=== PATIENT | female | born 1940 | race Caucasian/White ===

== ENCOUNTER → 2016-10-27 | Outpatient (CLI) | payer MEDICARE, OTHER ==
[~2016-10-27] MED LIST: ACET-2890 PO; AMLO10TA2 PO; ASCO500C15 PO; ASPI-611 PO; ATEN-36 PO; CALC600T12 PO; DOCU-168 PO; FISH1CAP29 PO; LEVO750T20 PO; LOSA100T44 PO; METR500T PO; MULT1CAP47 PO; NIAC500T74 PO; OMEP20CA81 PO; ONDA4TAB7 PO; SIMV20TA89 PO; [UNRECOGNIZED DRUG - CODE] PO
--- NOTE | 2016-10-27 16:55 | DI ---
Indication: ITS.REASON: M25.551 PAIN IN RT HIP PROCEDURE: HIP RIGHT 2 VIEW: Encounter: Initial Comparison: None Findings: There is no acute fracture, dislocation or malalignment identified. Moderate to severe axial joint space narrowing with small osteophytes on the femoral head. Impression: No acute osseous abnormality. Moderate osteoarthritis. .
== END ==
LOC: IMA 16:10
PROVIDERS: ATTEND Internal Medicine
DX: M16.11 Unilateral primary osteoarthritis, right hip (principal); M25.551 Pain in right hip

== ENCOUNTER → 2016-11-26 | Outpatient (CLI) | payer MEDICARE, OTHER ==
[~2016-11-26] MED LIST changes: +ATOR80TA76 PO; +CLOP75TA PO; +FENT1PAT65 TOP; +HYDR-4246 PO; +PANT40TA27 PO
[2016-11-26 18:38] LABS: ALBUMIN 4.3 G/DL (3.5-5.0); ALBUMIN/GLOBULIN RATIO 1.9 RATIO (1.1-2.2); ALKALINE PHOSPHATASE 71 U/L (38-126); ALT (SGPT) 35 U/L (9-52); ANION GAP 13 MEQ/L (5-15); AST (SGOT) 22 U/L (14-36); BUN/CREATININE RATIO 21 RATIO (6-26); CALCIUM 10.2 MG/DL (8.4-10.2); CHLORIDE 104 MEQ/L (98-107); CO2 - CARBON DIOXIDE 26 MEQ/L (22-30); CREATININE 1.3 MG/DL (0.7-1.2); GLOMERULAR FILTRATION RATE 40; GLUCOSE 106 MG/DL (65-110); POTASSIUM 4.6 MEQ/L (3.6-5); SODIUM 143 MEQ/L (134-144); TOTAL PROTEIN 6.6 G/DL (6.3-8.2)
== END ==
LOC: LAB 16:50
PROVIDERS: ATTEND Nurse Practitioner
DX: R19.7 Diarrhea, unspecified (principal); R10.9 Unspecified abdominal pain
CPT/HCPCS: 36415; 80053

== ENCOUNTER → 2016-11-27 | Outpatient (CLI) | payer MEDICARE, OTHER ==
[~2016-11-27] MED LIST changes: -ACET-2890 PO; -DOCU-168 PO; -LEVO750T20 PO; -LOSA100T44 PO; -METR500T PO; -OMEP20CA81 PO; -ONDA4TAB7 PO; -SIMV20TA89 PO
== END ==
LOC: LABN 09:19 → CCC.NEW 09:19
PROVIDERS: ATTEND Nurse Practitioner
DX: R19.7 Diarrhea, unspecified (principal)
CPT/HCPCS: 87507

== ENCOUNTER 2017-04-01 05:42 | Inpatient (IN) ==
[2017-04-01] MEDS ORDERED: LIDOCAINE 1% (10mg/ml) 2mL INJ PF SDV ID ONE (06:00)
[2017-04-01] MEDS ORDERED: DEXAMETHASONE 4 MG/ML INJECTION IVP ONE (06:00)
[2017-04-01] MEDS ORDERED: ONDANSETRON 4 MG/2 ML INJECTION IVP ONE (06:00)
[2017-04-01] MEDS ORDERED: ACETAMINOPHEN 500 MG TABLET PO ONE (06:00)
[2017-04-01] MEDS ORDERED: METOCLOPRAMIDE 10mg/2ml INJECTION IVP ONE (06:00)
[2017-04-01] MEDS ORDERED: NOZIN NASAL SWAB NAS ONE ×2 (06:00→10:29)
[2017-04-01] MEDS ORDERED: FAMOTIDINE PB 20 MG/50 ML BAG IV ONE (06:00)
[2017-04-01 06:04] VITALS: BMI 33.7
--- NOTE | 2017-04-01 06:11 | History & Physical Update ---
- History and Physical Update Date: 04/01/17 Update: I evaluated this patient and found no changes in the history and clinical exam findings. The treatment plan and recommendations are also unchanged from the previous documentation.
[2017-04-01] MEDS: LR 1,000 ML IV SCH ×2 (06:20→07:40)
[2017-04-01] MEDS ORDERED: VANCOMYCIN 1,000 MG INJECTION ONE (06:26)
[2017-04-01] MEDS ORDERED: MIDAZOLAM 2mg/2ml INJECTION ONE (06:52)
[2017-04-01] MEDS ORDERED: PROPOFOL 500 MG/50 ML VIAL IV ONE ×2 (06:52→08:42)
--- NOTE | 2017-04-01 07:03 | Anesthesia Preoperative Report ---
Anesthesia Preoperative Record - Date and Time Date: 04/01/17 Preoperative Diagnosis: Rt STEPH M16.11 Proposed Procedure: right total hip arthroplasty NPO Since Date: 03/31/17 NPO Since Time: 23:00 Allergies/Adverse Reactions: Allergies Allergy/AdvReac Type Severity Reaction Status Date / Time loracarbef [From Lorabid] Allergy Intermediate Rash Verified 04/01/17 06:13 hydrochlorothiazide Allergy Unknown jittery Verified 04/01/17 06:09 triamterene AdvReac Unknown jittery Verified 04/01/17 06:09 - Vital Signs Vital Signs: Temperature 97.9 F 04/01/17 06:03 Pulse Rate 72 04/01/17 06:03 Respiratory Rate 17 04/01/17 06:03 Blood Pressure 188/81 H 04/01/17 06:03 Pulse Oximetry 96 04/01/17 06:03 Height and Weight: Height 5 ft 6 in Weight 94.8 kg Body Mass Index 33.7 - Medications Inpatient Medications: Current Medications Cefazolin Sodium (Kefzol) 2 g IVP PREOP ONE Stop: 04/02/17 07:16 Epinephrine HCl 0.25 mg/Bupivacaine HCl 30 ml/Morphine Sulfate 15 mg/Ketorolac Tromethamine 60 mg/Sodium Chloride 65.25 mls @ 0 mls/hr OPSITE INTRAOP ONE; Per Protocol PRN Reason: Protocol Stop: 04/01/17 08:01 Lactated Ringer's (Lactated Ringers) 1,000 mls @ 50 mls/hr IV .Q20H IMER Last Admin: 04/01/17 06:20 Dose: 50 mls/hr Miscellaneous Medication (Tranexamic 1gm/Ns 100 Irr Mix) 100 ml IR O ONE Stop: 04/01/17 16:51 Sodium Chloride (Iv Flush) 10 - 80 ml IV PRN PRN PRN Reason: [place] Home Medications: Home Medications Medication Instructions Recorded Confirmed Type Atenolol 25 mg PO DAILY #0 03/04/10 04/01/17 History Niacin 500 mg PO DAILY #0 03/04/10 04/01/17 History Atorvastatin Calcium 80 mg PO HS #0 tab 11/26/16 04/01/17 History Clopidogrel Bisulfate [Plavix] 1 tab PO DAILY #0 tab 11/26/16 04/01/17 History Pantoprazole Sodium 40 mg PO ACB #0 tab 11/26/16 04/01/17 History Aleve (Naproxen) 220 mg capsule 220 mg PO DAILY PRN 03/24/17 04/01/17 History Colchicine [Colcrys] 0.6 mg PO DAILY PRN 03/24/17 04/01/17 History Fexofenadine [Suzan] 60 mg PO DAILY 03/24/17 04/01/17 History Hydrocodone/APAP 5/325 [[place] 1 tab PO Q6HPRN PRN 03/24/17 04/01/17 History 5/325] Multivitamin [Multivitamins] 1 each PO DAILY 03/24/17 04/01/17 History Norvasc (amlodipine) 5 mg tablet 5 mg PO DAILY tab 03/24/17 04/01/17 History [place]-3/Dha/Epa/Fish Oil [Fish Oil 2 each PO BID 03/24/17 04/01/17 History 1,000 mg Softgel] Tylenol Arthritis 650 mg 650 mg PO BID tab 03/24/17 04/01/17 History tablet,extended release Ubidecarenone/Vit E Acet [Co Q-10 1 each PO DAILY 03/24/17 04/01/17 History 100 mg Softgel] aspirin 500 mg tablet 500 mg PO DAILY tab 03/24/17 04/01/17 History Is Patient on Beta Chan?: Yes - Medical History Respiratory: DENIES: Asthma, Sleep Apnea Cardiovascular: Reports: Hypertension, High Cholesterol Gastrointestional: Reports: Gastroesophageal Reflux Disease Neuro/Musculoskeletal: Reports: Cerebrovascular Accident (possible CVA/TIA in past- plavix stopped 10 days ago) Renal/Endocrine: DENIES: Diabetes Mellitus Type 2 Other History: DENIES: Anesthesia Reactions - Surgical History GI Surgery/Treatments: Reports: Colonoscopy (polyps) Musculoskeletal Surgery/Tx: Reports: Total Knee Replacement (left and right), Other (lumbar back fusion) Reproductive Surgery/Treatment: Reports: Hysterectomy ([facility]/BSO, APPY 1990) Anesthesia Reactions: None Hx Family Anesthesia Reaction: No History of Motion Sickness: No - Social History Smoking Status: Never smoker Hx Chewing Tobacco Use: No Second Hand Exposure: No Substance Use Type: does not use Alcohol Intake Frequency: does not drink - Pertinent Findings Laboratory: CBC and BMP 04/01/17 06:24 EKG: Sinus Rhythm - Physical Exam Respiratory Exam: Present: lungs clear, bilateral breath sounds equal Cardiovascular Exam: Present: regular rate and rhythm - Airway Assessment Mallampati Score: I TMD: 3 Fingerbreadths Neck Extension: good - ASA ASA Score: 2 - Plan Anesthesia: General TIVA, Neuroaxial Regional/Trunk Block: Spinal - Discussion Discussion: Discussed risks/options/alternatives of anesthesia and questions answered. Patient consents. Nursing pain assessment noted. Attestation Statement: Prior to the delivery of any anesthetic medication, I examined the patient, developed the plan, obtained the patient's consent and discussed the risk and benefits of the procedure with the patient/guardian. - Additional Information Seen by Anesthesia: Yes
[2017-04-01] MEDS: CEFAZOLIN 1 G INJECTION IVP ONE ×2 (07:13→07:14)
[2017-04-01] MEDS ORDERED: EPINEPHrine 0.25 MG, BUPIVACAINE 0.25% PF 30 ML, MORPHINE SULFATE 15 MG, KETOROLAC INJ ... OPSITE ONE (08:00)
[2017-04-01] MEDS ORDERED: VANCOMYCIN 1,000 MG INJECTION IAR ONE (08:03)
[2017-04-01] MEDS ORDERED: ONDANSETRON 4 MG/2 ML INJECTION IVP PRN ×2 (08:35→10:29)
[2017-04-01] MEDS ORDERED: HYDROMORPHONE 2 MG/ML INJECTION IVP PRN (08:35)
[2017-04-01] MEDS ORDERED: DEXAMETHASONE 4 MG/ML INJECTION ONE (09:00)
[2017-04-01] MEDS ORDERED: SALINE FLUSH 10ml SYRINGE ONE (09:00)
[2017-04-01] MEDS ORDERED: EPHEDRINE 50mg/ml INJECTION ONE (09:00)
[2017-04-01] MEDS ORDERED: ONDANSETRON 4 MG/2 ML INJECTION ONE (09:00)
--- NOTE | 2017-04-01 09:45 | Operative Note ---
- Procedure Preoperative Diagnosis: Right hip primary degenerative joint disease Postoperative Diagnosis: Same as preoperative diagnosis. Surgeon: Wong Ashford MD Manager Generation: Tacho Villegas Complications: None. Anesthesia: General with gas Estimated Blood Loss: See Anesthesia Record. Fluids: Please see Anesthesia Record. Description of Procedure: Mrs. Coe and her right hip were identified and marked in the preoperative holding area. She was brought back to the operating suite and spinal anesthetic was administered. She was then placed in a lateral decubitus position with her right hip up. The right lower extremity was prepped and draped in my normal sterile fashion. Timeout was performed. The Droid[employer] robotic arm was used to assist with the surgery. A pelvic array was placed into the iliac crest through three 1 cm incisions. A direct superior approach was utilized. An approximately 15 cm incision was made in the skin and dissection carried down to the muscle fascia which was then split in line with skin incision. A checkpoint was placed in the greater trochanter. The short external rotators were identified and tagged and detached. A capsulotomy was performed and the hip dislocated. A femoral neck osteotomy was performed at the pre-templated level measuring down from the femoral head. The head was removed and acetabulum exposed. Labrum was removed. A checkpoint was placed superior to the acetabulum. The acetabulum was then registered with the robot. The robotic arm was then used to ream with a 49 reamer. She has sclerotic rim and the 50 mm implant did not seat fully the first time so it was removed and we reamed the rim with a 50 mm reamer. The robot then was again used to place a 50 Trident cup in 40 of tilt and 25 of anteversion. A liner was then placed. The proximal femur was exposed and prepared with a cookie cutter followed by reaming and broaching to a size 4. We trialed with a -5 head. After thorough irrigation a final Accolade 2 size 4 stem with 127 neck was placed. Leg length and offset were checked with the robot and were good. A final -5 metal head was placed and the hip reduced. Betadine solution was used to irrigate throughout the case. It was followed by normal saline irrigation. Joint cocktail was injected throughout soft tissue. 1 g of TXA was allowed to sit in the wound for 5 minutes and then suctioned out. The capsulotomy was repaired with Ethibond. Short external rotators were also repaired with Ethibond. 1 g of vancomycin powder was placed into the wound. The muscle fascia was then repaired with #1 Vicryl. I then left my junior administrative assistant to close the subcutaneous tissue with 2-0 Vicryl followed by running 4-0 Monocryl skin followed by Dermabond and a sterile dressing. The patient with any placed back into supine position and taken to recovery room in the care of anesthesia.
[2017-04-01] MEDS ORDERED: DiphenhydrAMINE 25 MG CAPSULE PO PRN (10:29)
[2017-04-01] MEDS ORDERED: LORazepam 1 MG TABLET PO PRN (10:29)
[2017-04-01] MEDS ORDERED: DiphenhydrAMINE 50 MG/ML INJECTION IVP PRN (10:29)
[2017-04-01] MEDS ORDERED: NAPROXEN 220 MG TABLET PO PRN (10:29)
[2017-04-01] MEDS ORDERED: COLCHICINE 0.6 MG TABLET PO PRN (10:29)
--- NOTE | 2017-04-01 10:29 | Anesthesia Postoperative Note ---
- Date and Time Date: 04/01/17 Time: 10:09 - Status Patient Participated in Evaluation: Patient Participated in Person Vital Signs: Temperature 97.9 F 04/01/17 06:03 Pulse Rate 72 04/01/17 06:03 Respiratory Rate 04/01/17 06:03 Blood Pressure 188/81 H 04/01/17 06:03 Pulse Oximetry 96 04/01/17 06:03 Respiratory Function: Airway Patent Cardiovascular Function: Regular Pulse EKG: Sinus Rhythm Mental Status: Alert and Oriented Pain Intensity: 0 (spinal still active) Hydration: IV Infusing Complications During Recover: None Apparent - Follow-Up Instructions Instructions: Per Surgeon
[2017-04-01] MEDS: AMLODIPINE 5 MG TABLET PO SCH (10:40)
[2017-04-01] MEDS: ATENOLOL 25 MG TABLET PO SCH (10:40)
[2017-04-01] MEDS: FEXOFENADINE 60 MG TABLET PO SCH (10:41)
[2017-04-01] MEDS: NS 1,000 ML IV SCH (10:42)
[2017-04-01] MEDS: POLYETHYL GLYCOL 3350 17gm PACKET PO SCH (10:42)
[2017-04-01] MEDS: DOCUSATE SODIUM 100 MG CAPSULE PO SCH ×2 (10:42→21:02)
[2017-04-01] MEDS: ACETAMINOPHEN 325 MG TABLET PO SCH ×4 (10:42→21:02)
[2017-04-01] MEDS ORDERED: FALL RISK - PHARMACY CONSULT XX ONE (10:55)
[2017-04-01] MEDS: CLOPIDOGREL 75 MG TABLET PO SCH (11:00)
[2017-04-01] MEDS: OMEGA-3 ACID ESTERS 1 GM CAPSULE PO SCH ×2 (12:24→21:01)
--- NOTE | 2017-04-01 12:50 | XRay Report ---
Indication: postoperative image PROCEDURE: XR pelvis w/ 1 view RT hip: Encounter: Initial Comparison: October 27, 2016 Findings: Postoperative changes of right total hip replacement are seen. There is expected postoperative subcutaneous gas. No evidence of hardware failure or acute fracture. No retained radiopaque surgical instruments or sponges seen. Impression: New right total hip prosthesis without evidence of immediate complication. .
[2017-04-01] MEDS: Oxycodone *IR* 5 MG TABLET PO PRN ×3 (13:36→21:03)
[2017-04-01] MEDS: NOZIN NASAL SWAB NAS SCH ×2 (13:36→21:02)
[2017-04-01] MEDS: CEFAZOLIN 2 G in NS 100 ML IV SCH ×2 (14:47→22:37)
[2017-04-01] MEDS ORDERED: SALINE FLUSH 10ml SYRINGE IV PRN (16:50)
[2017-04-01] MEDS ORDERED: TRANEXAMIC ACID 1gm/NS 100ml IRR MIX IR ONE (16:50)
[2017-04-01] MEDS ORDERED: NIACIN ER 500 MG TABLET PO SCH (21:00)
[2017-04-01] MEDS ORDERED: ATORVASTATIN 40 MG TABLET PO SCH (21:00)
[2017-04-01] MEDS ORDERED: SENNOSIDES 8.6 MG TABLET PO SCH (21:00)
[2017-04-02] MEDS: NS 1,000 ML IV SCH ×2 (01:10→12:37)
[2017-04-02] MEDS: Oxycodone *IR* 5 MG TABLET PO PRN ×3 (03:55→10:49)
[2017-04-02] MEDS: NOZIN NASAL SWAB NAS SCH ×3 (06:14→13:08)
[2017-04-02] MEDS ORDERED: PANTOPRAZOLE 40 MG TABLET PO SCH (06:30)
[2017-04-02] MEDS ORDERED: SENNOSIDES 8.6 MG TABLET PO PRN (07:09)
--- NOTE | 2017-04-02 08:15 | Orthopedic Progress Note ---
Date: Subjective/Severity of Illness: Doing well. Pain controlled. She has been up with good tolerance. No CP, cough or SOA. Expects discharge today. Orthopedic Objective PO Vital signs: Temperature 98.4 F 04/02/17 07:54 Pulse Rate 69 04/02/17 07:54 Respiratory Rate 18 04/02/17 07:54 Blood Pressure 139/63 04/02/17 07:54 Pulse Oximetry 97 04/02/17 07:54 Height and Weight: Height 5 ft 6 in Weight 213 lb 13.574 oz Body Mass Index 33.7 - Constitutional General Appearance: Present: alert, no acute distress - Respiratory Exam Present: non-labored - Cardiovascular Exam Present: pedal pulses intact - Extremities Exam Extremities: Present: pulses intact, normal capillary refill. Absent: calf tenderness - Surgical Site Incision: Mepilex dressing intact, dressing intact, no drainage - Integumentary Exam Present: pink, warm, dry - Neurological Exam Present: no deficits - Labs Result Diagrams: 04/02/17 03:51 04/02/17 03:51 Abnormal lab results 04/02/17 04/02/17 Range/Units 03:51 03:51 WBC 17.8 H D (4.5-11.0) T/MM3 RBC 3.99 L (4.00-5.20) M/MM3 Hgb 11.9 L D (12-16) GM/DL BUN 30.0 H (7-17) MG/DL BUN/Creatinine Ratio 30 H (6-26) RATIO Glucose 147 H (65-110) MG/DL Calculated Osmolality 286 H (261-280) MOSM/KG H & H 04/01/17 04/02/17 Range/Units 06:24 03:51 Hgb 13.7 11.9 L D (12-16) GM/DL Hct 42.0 36.8 D (36-46) % Orthopedic Assessment and Plan (1) Primary osteoarthritis of right hip Status: Acute Assessment and Plan: Current anti-coagulation protocol for VTE prophylaxis. SCD's. PT/OT services to improve independent function. Discharge Planning per Case Management. - Anticoagulation Therapy Anticoagulation: ASA 325 mg PO BID x6 weeks Hospital Course Summary Disclaimer: The visit summary below is not to be considered part of the above Progress Note.
[2017-04-02] MEDS: OMEGA-3 ACID ESTERS 1 GM CAPSULE PO SCH (08:57)
[2017-04-02] MEDS: FEXOFENADINE 60 MG TABLET PO SCH (08:57)
[2017-04-02] MEDS: POLYETHYL GLYCOL 3350 17gm PACKET PO SCH (08:57)
[2017-04-02] MEDS: DOCUSATE SODIUM 100 MG CAPSULE PO SCH (08:58)
[2017-04-02] MEDS: CLOPIDOGREL 75 MG TABLET PO SCH (08:58)
[2017-04-02] MEDS: ATENOLOL 25 MG TABLET PO SCH (08:58)
[2017-04-02] MEDS: AMLODIPINE 5 MG TABLET PO SCH (08:58)
[2017-04-02] MEDS: ACETAMINOPHEN 325 MG TABLET PO SCH ×2 (08:58→12:42)
[2017-04-02] MEDS ORDERED: ASPIRIN 325 MG TABLET PO SCH (09:00)
[2017-04-02 11:19] VITALS: BP 144/78; PULSE 75; RESP 16; TEMP 98.3; O2SAT 99
--- NOTE | 2017-04-02 12:40 | Discharge Summary ---
Orthopedic Discharge Info Date of admission: 04/01/17 05:42 Primary care physician: Reji Ruiz DO Attending Physician: Erick Ashford MD Consults: 04/01/17 05:58 Consult to Anesthesiology [CONS] Routine Consulting Provider: DARIAN Schultz Reason For Exam: Preoperative Assessment 04/01/17 10:29 Case Management Consult [CONS] Routine Reason For Exam: Discharge Planning DME-Walker [CONS] Routine Height: 5 ft 6 in Weight: 208 lb 15.971 oz Comment: change dressing in 2 weeks Total Joint Outpatient Therapy [CONS] Routine Comment: change dressing in 2 weeks - Discharge Diagnosis (1) Primary osteoarthritis of right hip Status: Acute - Procedures Procedures: Right STEPH - Laboratory Result Diagrams: 04/02/17 03:51 04/02/17 03:51 Laboratory: Abnormal lab results 04/02/17 04/02/17 Range/Units 03:51 03:51 WBC 17.8 H D (4.5-11.0) T/MM3 RBC 3.99 L (4.00-5.20) M/MM3 Hgb 11.9 L D (12-16) GM/DL BUN 30.0 H (7-17) MG/DL BUN/Creatinine Ratio 30 H (6-26) RATIO Glucose 147 H (65-110) MG/DL Calculated Osmolality 286 H (261-280) MOSM/KG H & H 04/01/17 04/02/17 Range/Units 06:24 03:51 Hgb 13.7 11.9 L D (12-16) GM/DL Hct 42.0 36.8 D (36-46) % Orthopedic Discharge HPI - HPI Comments This patient was admitted for elective surgical tx of end stage degenerative joint disease that failed to respond to conservative treatment. Further details of this is found in the admission H&P. Orthopedic Hospital Course Hospital course: 04/02/17 12:35 After appropriate preoperative clearance and signing of operative consent, the patient was given IV antibiotics, according to orthopedic protocol. The patient was taken to the operating room and underwent elective joint arthroplasty. Following surgery, antibiotics were discontinued less than 24 hours according to joint protocol. Appropriate anticoagulants were initiated and SCDs added for DVT prevention. The dressing was clean, dry, and intact. Pain control was obtained via multimodal approach. Bowel motivation addressed with scheduled and PRN medications. Early mobilization was initiated through PT services. Discharge arrangements made by a collaborative effort between the patient and Case Management. Follow-up is scheduled in 2-3 weeks. Discharge instructions given by orthopedic providers and nursing staff at discharge. Discharge condition was good. Ongoing care required?: No - Postoperative Anemia patient received IVF, labs monitored daily, no intervention required, HGB drop- acceptable - Leukocytosis due to preoperative IV Decadron Discharge Plan - Med Rec/Dispo Referrals/Follow Up: Erick Ashford MD [Physician] - 04/26/17 10:30 am Bhupendra Instructions: [facility] [place] Ortho Postop Instructions Additional Instructions: CAYETANO GOMEZ ON 04/05/2017 AT 10:45AM FOR PHYSICAL THERAPY EVAL. PHONE [phone] Prescriptions: New Acetaminophen [Tylenol] 650 mg PO QID #100 tablet Aspirin *EC* [Ecotrin] 1 tab PO BID #84 tab Oxycodone *IR* [Roxicodone *Ir*] 5 - 15 mg PO Q3H PRN #60 tablet PRN Reason: Breakthrough Pain Continue Atenolol 25 mg PO DAILY #0 Clopidogrel Bisulfate [Plavix] 1 tab PO DAILY #0 tab Multivitamin [Multivitamins] 1 each PO DAILY Colchicine [Colcrys] 0.6 mg PO DAILY PRN PRN Reason: Gout Pain Fexofenadine [Suzan] 60 mg PO DAILY Aspirin 325 mg PO DAILY Niacin 500 mg PO DAILY #0 Atorvastatin Calcium 80 mg PO HS #0 tab Pantoprazole Sodium 40 mg PO ACB #0 tab Ubidecarenone/Vit E Acet [Co Q-10 100 mg Softgel] 1 each PO DAILY [place]-3/Dha/Epa/Fish Oil [Fish Oil 1,000 mg Softgel] 2 each PO BID Norvasc (amlodipine) 5 mg tablet 5 mg PO DAILY tab Discontinued Hydrocodone/APAP 5/325 [[place] 5/325] 1 tab PO Q6HPRN PRN PRN Reason: Pain Aleve (Naproxen) 220 mg capsule 220 mg PO DAILY PRN PRN Reason: Pain Tylenol Arthritis 650 mg tablet,extended release 650 mg PO BID tab - Disposition 01 Discharged Home, Self-Care
[2017-04-03] MEDS ORDERED: BISACODYL 10 MG SUPPOSITORY RECTALLY SCH (20:00)
== END 2017-04-02 14:10 | disposition home or self-care (01) | DRG 470 ==
LOC: SRG 05:42
PROVIDERS: ADMIT Orthopaedic Surgery; ATTEND Orthopaedic Surgery